=== PATIENT | female | born 1955 | race Caucasian/White ===

== ENCOUNTER → 2016-04-05 | Day surgery (SDC) | payer OTHER ==
[~2016-04-05] VITALS: Ht 165.1 cm; Wt 53.1 kg
[~2016-04-05] MED LIST: ALBUTEROL SULF0.5 M1 NEB; ALBUTEROL0.09 MG/A2 INH; ALBUTEROL2.5 MG/0.5 INH; AMBIEN10 M1 PO; AMBIEN5 MG PO; AMITIZA24 MCG PO; AMOXIL500 MG PO; ASPIRIN CHILDRE81 MG PO; ASPIRIN EC325 MG PO; ASPIRIN ENTERIC81 M1 PO; ATARAX,VISTARIL50 MG PO; ATIVAN0.5 MG PO; B121000 MCG/1; BENTYL10 MG PO; CARVEDILOL3.125 MG PO; CATAPRES0.1 MG PO; CEFEPIME1 GM IV; CEFTRIAXON1 GM/50 ML IV; CIPRO250 MG PO; CIPRO500 MG PO; CLOPIDOGREL75 MG PO; COREG3.125 MG PO; COREG6.25 MG PO; DALI500T PO; DELTASONE2.5 MG PO; DELTASONE20 MG PO; DELTASONE5 MG PO; DILAUDID4 MG PO; DILTIAZEM30 MG PO; DOXYCYCLINE MO100 MG; DULE1ARO INH; DULERA100 INH; FERREX 150150 MG PO; K-TAB20 MEQ PO; LASIX20 MG PO; LEVAQUIN 500 M500 M1 IV; LIPITOR40 MG PO; LIPITOR80 MG PO; LISINOPRIL5 MG PO; Levaquin PO; MEGACE 40400 MG/10 PO; METHYLPREDNI40 MG/M1 IV; METICORTEN1 MG PO; MICRO-K10 MEQ PO; MILLIPRED5 MG PO; MIRTAZAPINE7.5 MG PO; NEURONTIN300 MG PO; NEURONTIN400 MG PO; NOVAPLUS SOLU-M40 MG IV; NUCYNTA75 MG PO; OXYGEN NAS; PREDNISONE5 MG PO; PROTONIX40 MG PO; PYRIDIUM100 MG PO; PYRIDIUM200 MG PO; REGLAN10 MG PO; REMERON30 MG PO; REMERON45 MG PO; SLOW-K8 MEQ PO; SOLU-MEDROL IV; SOLU-MEDROL40 MG IV; SPIRIVA 5 CAPS18 MCG INH; SPIRIVA18 MCG PO; SYMBICORT1 AE1 INH; TAMIFLU 75MG CA75 MG PO; THEO PO; TOPROL XL25 MG PO; VICODIN ES 7.51 EACH PO; VITAMIN D 3; XANAX0.25 MG PO; ZESTRIL,PRINIVI10 MG PO; ZESTRIL20 MG PO; ZOFRAN8 MG PO; [UNRECOGNIZED DRUG - OTHER]; [UNRECOGNIZED DRUG - OTHER] IV
--- NOTE | ~2016-04-05 | PROC NOTE ---
[place], [place] PROCEDURE NOTE NAME: MARVIN WOLF [facility] #: [id number] UNIT #: [id number] ROOM: DOCTOR: NATE DUNN,NEENA BIRTHDATE: [birth year] DOS: PROCEDURE: Esophagogastroduodenoscopy and biopsy. INDICATION: Abdominal pain and nausea. Informed consent was obtained from the patient after indication of procedure, the alternatives and potential complications were explained to her. PROCEDURE MEDICATIONS: Sedation was administered by Anesthesiology Department. Scope used was Olympus diagnostic adult upper endoscope GIF-180, that insertion was to the descending duodenum. FINDINGS: After adequate sedation, the patient was placed in left lateral decubitus position and the scope was introduced under direct visualization through the upper esophageal sphincter into the esophagus. Esophageal mucosa appeared normal. No ulcerations or strictures. Lower esophageal sphincter was identified at 38 cm from incisors. Stomach was then intubated. Gastric mucosa inspected. Severe gastritis was seen with no discrete ulcers reflux. A CLOtest was performed from gastric antrum and body. Retroflexed views of the fundus showed no hiatal hernia. The pylorus was intubated easily. The duodenal bulb and descending duodenum were within normal range. The scope was then withdrawn after the stomach was decompressed. The patient tolerated the procedure well. IMPRESSION: 1. Severe gastritis, CLOtest performed. 2. Normal upper GI tract otherwise. PLAN: We will review the CLOtest results and treat the patient accordingly. Office followup will be scheduled in 2-3 weeks. NEENA SULLIVAN MD CM:PROCNOTE:PROCEDURE NOTE [id number] CAITLIN SULLIVAN MD
[2016-04-05 07:58] VITALS: BP 120/60
[2016-04-05 08:50] VITALS: BP 119/69
[2016-04-05 09:10] VITALS: BP 107/81
[2016-04-05 09:25] VITALS: BP 131/69
== END | disposition home or self-care (01) ==
LOC: SDC 04-03 11:00
DX: K29.70 Gastritis, unspecified, without bleeding (principal); J44.9 Chronic obstructive pulmonary disease, unspecified; I10 Essential (primary) hypertension; I25.2 Old myocardial infarction; F41.9 Anxiety disorder, unspecified; E78.00 Pure hypercholesterolemia, unspecified; Z86.74 Personal history of sudden cardiac arrest; M79.7 Fibromyalgia; I48.91 Unspecified atrial fibrillation; E27.1 Primary adrenocortical insufficiency; Z95.818 Presence of other cardiac implants and grafts; Z82.49 Family history of ischemic heart disease and other diseases of the circulatory system

== ENCOUNTER → 2016-04-08 | Outpatient (CLI) | payer OTHER | END | disposition home or self-care (01) | LOC: US 09:37 | DX: R10.9 Unspecified abdominal pain (principal) ==

== ENCOUNTER → 2016-10-02 | Outpatient (CLI) | payer OTHER | END | disposition home or self-care (01) | LOC: LAB 09:30 | PROVIDERS: Internal Medicine | DX: R51 Headache (principal) ==

== ENCOUNTER → 2016-10-04 | Outpatient (CLI) | payer OTHER | END | disposition home or self-care (01) | LOC: CT 02:10 | DX: R51 Headache (principal) ==

== ENCOUNTER → 2017-01-03 | Outpatient (CLI) | payer OTHER ==
[2017-01-03 14:29] LABS: HEMOGLOBIN 14.9 g/dl (12.0-16.0); MEAN CELL VOLUME 93.3 fl (81.0-99.0); MEAN CORPUSCULAR HGB 29.6 pg (27.0-31.0); MEAN CORPUSCULAR HGB CONC 31.7 g/dl (33.0-37.0); MEAN PLATELET VOLUME 11.9 fl (9.6-12.3); RED BLOOD COUNT 5.04 10*6/uL (4.10-5.10); RED CELL DISTRI WIDTH 13.4 % (0-14.5); WHITE BLOOD COUNT 9.7 10*3/uL (4.8-10.8)
[2017-01-03 14:47] LABS: CREATININE 1.6 mg/dL (0.55-1.02); POTASSIUM 4.3 mmol/L (3.5-5.1); TOTAL PROTEIN 6.1 gm/dL (6.4-8.2)
== END | disposition home or self-care (01) ==
LOC: LAB 13:47
PROVIDERS: Nurse Practitioner Family
DX: R10.9 Unspecified abdominal pain (principal)

== ENCOUNTER 2017-07-10 14:01 | Emergency (ER) | payer OTHER ==
[~2017-07-10] VITALS: Wt 44.0 kg
[2017-07-10 15:59] VITALS: BP 95/66
== END 2017-07-10 16:00 | disposition home or self-care (01) ==
LOC: ED 14:01
DX: S82.832A Other fracture of upper and lower end of left fibula, initial encounter for closed fracture (principal); S82.292A Other fracture of shaft of left tibia, initial encounter for closed fracture; G89.29 Other chronic pain; M79.7 Fibromyalgia; I95.1 Orthostatic hypotension; Z87.891 Personal history of nicotine dependence; Z90.49 Acquired absence of other specified parts of digestive tract; Z79.899 Other long term (current) drug therapy; Z88.1 Allergy status to other antibiotic agents; Z88.5 Allergy status to narcotic agent; Z88.8 Allergy status to other drugs, medicaments and biological substances; Z88.6 Allergy status to analgesic agent; W19.XXXA Unspecified fall, initial encounter; Y93.89 Activity, other specified; Y92.89 Other specified places as the place of occurrence of the external cause; Y99.9 Unspecified external cause status

== ENCOUNTER → 2017-07-17 | Outpatient (CLI) | payer OTHER | END | disposition home or self-care (01) | LOC: ORTHO 00:22 | DX: S82.842D Displaced bimalleolar fracture of left lower leg, subsequent encounter for closed fracture with routine healing (principal); W18.39XA Other fall on same level, initial encounter; Y93.89 Activity, other specified; Y92.89 Other specified places as the place of occurrence of the external cause; Y99.8 Other external cause status ==

== ENCOUNTER → 2017-08-04 | Outpatient (CLI) | payer OTHER | END | disposition home or self-care (01) | LOC: ORTHO 01:31 | DX: S82.842D Displaced bimalleolar fracture of left lower leg, subsequent encounter for closed fracture with routine healing (principal); X58.XXXD Exposure to other specified factors, subsequent encounter ==

== ENCOUNTER → 2017-08-27 | Outpatient (CLI) | payer OTHER | END | disposition home or self-care (01) | LOC: ORTHO 00:41 | DX: S82.842D Displaced bimalleolar fracture of left lower leg, subsequent encounter for closed fracture with routine healing (principal); X58.XXXD Exposure to other specified factors, subsequent encounter ==

== ENCOUNTER → 2017-09-10 | Outpatient (CLI) | payer OTHER | END | disposition home or self-care (01) | LOC: ORTHO 02:38 | DX: Z47.89 Encounter for other orthopedic aftercare (principal); S82.842D Displaced bimalleolar fracture of left lower leg, subsequent encounter for closed fracture with routine healing; M25.472 Effusion, left ankle; X58.XXXD Exposure to other specified factors, subsequent encounter ==

== ENCOUNTER → 2017-10-03 | Outpatient (CLI) | payer OTHER | END | disposition home or self-care (01) | LOC: ORTHO 02:14 | DX: Z47.89 Encounter for other orthopedic aftercare (principal); S82.842D Displaced bimalleolar fracture of left lower leg, subsequent encounter for closed fracture with routine healing; X58.XXXD Exposure to other specified factors, subsequent encounter ==

== ENCOUNTER 2018-07-16 14:59 | Emergency (ER) | payer OTHER ==
[~2018-07-16] VITALS: Ht 167.6 cm; Wt 58.5 kg
--- NOTE | ~2018-07-16 | EKG ---
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
[~2018-07-16 14:59] MED LIST changes: +DOXYCYCLINE100 M3 PO; +Ipratropium Brom3 ML NEB; +PULMICORT RESP0.5 MG NEB
[2018-07-16 15:37] LABS: BASO % 0.3 % (0.0-1.0); EOS # 0.1 10*3/uL (0.0-0.4); HEMATOCRIT 42.9 % (37.0-47.0); HEMOGLOBIN 14.4 g/dl (12.0-16.0); LYMPH # 0.9 10*3/uL (1.3-4.4); LYMPH % 10.2 % (27.0-41.0); MEAN CELL VOLUME 93.3 fl (81.0-99.0); MEAN CORPUSCULAR HGB 31.3 pg (27.0-31.0); MEAN CORPUSCULAR HGB CONC 33.6 g/dl (33.0-37.0); MEAN PLATELET VOLUME 10.2 fl (9.6-12.3); MONO # 0.7 10*3/uL (0.1-1.0); MONO % 7.9 % (3.0-9.0); NEUT # 7.1 10*3/uL (2.3-7.9); PLATELET COUNT AUTOMATED 194 10*3/uL (130-400); RED CELL DISTRI WIDTH 13.5 % (0-14.5); WHITE BLOOD COUNT 8.9 10*3/uL (4.8-10.8)
[2018-07-16 16:03] LABS: ALKALINE PHOSPHATASE 89 U/L (45-117); BUN 20 mg/dl (7-24); CHLORIDE 94 mmol/L (98-107); CREATININE 1.93 mg/dL (0.55-1.02); POTASSIUM 5.1 mmol/L (3.5-5.1); SGOT/AST 15 IU/L (3-35); SGPT/ALT 17 U/L (12-78); SODIUM 132 mmol/L (136-145); TOTAL PROTEIN 6.3 gm/dL (6.4-8.2)
[2018-07-16 16:11] LABS: TROPONIN I < 0.015 ng/ml (<0.045)
[2018-07-16 16:52] VITALS: BP 90/57
== END 2018-07-16 17:24 | disposition left against medical advice (07) ==
LOC: ED 14:59
PROVIDERS: Emergency Medicine
DX: I95.9 Hypotension, unspecified (principal); J44.9 Chronic obstructive pulmonary disease, unspecified; I25.10 Atherosclerotic heart disease of native coronary artery without angina pectoris; I12.9 Hypertensive chronic kidney disease with stage 1 through stage 4 chronic kidney disease, or unspecified chronic kidney disease; N18.9 Chronic kidney disease, unspecified; Z99.81 Dependence on supplemental oxygen; Z88.1 Allergy status to other antibiotic agents; Z88.8 Allergy status to other drugs, medicaments and biological substances; Z88.6 Allergy status to analgesic agent; Z88.2 Allergy status to sulfonamides; Z79.899 Other long term (current) drug therapy; Z87.891 Personal history of nicotine dependence

== ENCOUNTER 2018-09-09 21:47 | Emergency (ER) | payer OTHER ==
[~2018-09-09] VITALS: Ht 165.1 cm; Wt 55.8 kg
[2018-09-09 21:48] VITALS: BP 164/97
[2018-09-09 22:03] LABS: BASO % 0.5 % (0.0-1.0); EOS # 0.2 10*3/uL (0.0-0.4); HEMATOCRIT 39.2 % (37.0-47.0); HEMOGLOBIN 12.3 g/dl (12.0-16.0); LYMPH % 18.3 % (27.0-41.0); MEAN CELL VOLUME 97.5 fl (81.0-99.0); MEAN CORPUSCULAR HGB 30.6 pg (27.0-31.0); MEAN CORPUSCULAR HGB CONC 31.4 g/dl (33.0-37.0); MEAN PLATELET VOLUME 10.8 fl (9.6-12.3); MONO # 0.6 10*3/uL (0.1-1.0); MONO % 10.2 % (3.0-9.0); NEUT # 3.8 10*3/uL (2.3-7.9); NEUT % 66.8 % (47.0-73.0); PLATELET COUNT AUTOMATED 188 10*3/uL (130-400); RED BLOOD COUNT 4.02 10*6/uL (4.10-5.10); WHITE BLOOD COUNT 5.7 10*3/uL (4.8-10.8)
[2018-09-09 22:20] LABS: ALBUMIN 3.6 gm/dl (3.1-4.5); ALKALINE PHOSPHATASE 68 U/L (45-117); BUN 15 mg/dl (7-24); CHLORIDE 104 mmol/L (98-107); CREATININE 1.41 mg/dL (0.55-1.02); SGOT/AST 15 IU/L (3-35); SGPT/ALT 19 U/L (12-78); SODIUM 140 mmol/L (136-145); TOTAL PROTEIN 6.1 gm/dL (6.4-8.2)
== END 2018-09-09 23:57 | disposition home or self-care (01) ==
LOC: ED 21:47
PROVIDERS: Student in an Organized Health Care Education/Training Program
DX: R23.8 Other skin changes (principal); I25.10 Atherosclerotic heart disease of native coronary artery without angina pectoris; J44.9 Chronic obstructive pulmonary disease, unspecified; G89.29 Other chronic pain; I12.9 Hypertensive chronic kidney disease with stage 1 through stage 4 chronic kidney disease, or unspecified chronic kidney disease; N18.9 Chronic kidney disease, unspecified; G62.9 Polyneuropathy, unspecified; Z88.1 Allergy status to other antibiotic agents; Z79.82 Long term (current) use of aspirin; Z87.891 Personal history of nicotine dependence; Z90.49 Acquired absence of other specified parts of digestive tract; Z88.5 Allergy status to narcotic agent; Z88.6 Allergy status to analgesic agent; Z79.899 Other long term (current) drug therapy; Z88.8 Allergy status to other drugs, medicaments and biological substances; Z99.81 Dependence on supplemental oxygen

== ENCOUNTER 2018-10-25 17:50 | Emergency (ER) | payer OTHER ==
[~2018-10-25] VITALS: Ht 165.1 cm; Wt 55.3 kg
--- NOTE | ~2018-10-25 | EKG ---
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
[2018-10-25 17:53] VITALS: BP 151/85
[2018-10-25 18:12] LABS: BASO % 0.4 % (0.0-1.0); EOS # 0.2 10*3/uL (0.0-0.4); HEMATOCRIT 41.9 % (37.0-47.0); HEMOGLOBIN 13.8 g/dl (12.0-16.0); LYMPH % 17.5 % (27.0-41.0); MEAN CELL VOLUME 92.7 fl (81.0-99.0); MEAN CORPUSCULAR HGB 30.5 pg (27.0-31.0); MEAN CORPUSCULAR HGB CONC 32.9 g/dl (33.0-37.0); MEAN PLATELET VOLUME 10.8 fl (9.6-12.3); MONO # 0.5 10*3/uL (0.1-1.0); MONO % 9.5 % (3.0-9.0); NEUT # 3.9 10*3/uL (2.3-7.9); NEUT % 69.2 % (47.0-73.0); PLATELET COUNT AUTOMATED 158 10*3/uL (130-400); RED BLOOD COUNT 4.52 10*6/uL (4.10-5.10); RED CELL DISTRI WIDTH 12.4 % (0-14.5); WHITE BLOOD COUNT 5.6 10*3/uL (4.8-10.8)
[2018-10-25 18:29] LABS: ALBUMIN 3.7 gm/dl (3.1-4.5); ALKALINE PHOSPHATASE 67 U/L (45-117); BUN 16 mg/dl (7-24); CHLORIDE 93 mmol/L (98-107); CREATININE 1.51 mg/dL (0.55-1.02); POTASSIUM 3.9 mmol/L (3.5-5.1); SGOT/AST 8 IU/L (3-35); SGPT/ALT 10 U/L (12-78); SODIUM 131 mmol/L (136-145); TOTAL PROTEIN 6.2 gm/dL (6.4-8.2)
[2018-10-25 18:32] LABS: TROPONIN I < 0.015 ng/ml (<0.045)
== END 2018-10-25 19:45 | disposition home or self-care (01) ==
LOC: ED 17:50
PROVIDERS: Physician Assistant
DX: S00.03XA Contusion of scalp, initial encounter (principal); R42 Dizziness and giddiness; J44.9 Chronic obstructive pulmonary disease, unspecified; Z79.899 Other long term (current) drug therapy; Z88.1 Allergy status to other antibiotic agents; Z88.2 Allergy status to sulfonamides; Z88.6 Allergy status to analgesic agent; Z88.8 Allergy status to other drugs, medicaments and biological substances; Z87.891 Personal history of nicotine dependence; Z99.81 Dependence on supplemental oxygen; W18.39XA Other fall on same level, initial encounter; Y93.89 Activity, other specified; Y92.89 Other specified places as the place of occurrence of the external cause; Y99.8 Other external cause status

== ENCOUNTER → 2019-11-16 | Outpatient (CLI) | payer OTHER | END | disposition home or self-care (01) | LOC: CARD 12:00 → LAB 12:06 | PROVIDERS: ATTEND Internal Medicine | DX: J43.1 Panlobular emphysema (principal); I10 Essential (primary) hypertension; R51 Headache; J20.9 Acute bronchitis, unspecified; R05 Cough; R07.0 Pain in throat; D52.9 Folate deficiency anemia, unspecified; D51.9 Vitamin B12 deficiency anemia, unspecified; R79.82 Elevated C-reactive protein (CRP); R53.81 Other malaise; E55.9 Vitamin D deficiency, unspecified; M06.9 Rheumatoid arthritis, unspecified; R06.02 Shortness of breath ==

== ENCOUNTER 2020-01-03 16:30 | Inpatient (IN) | payer OTHER ==
[~2020-01-03] VITALS: Ht 167.6 cm; Wt 61.8 kg
[2020-01-03 16:50] VITALS: BP 173/84
--- NOTE | 2020-01-03 16:56 | NUR ---
PT PLACED ON O2 AT 4LPM WHILE AWAITING A ROOM PULSE OC NOW 97% WAS 84% ON ROOM AIR
[2020-01-03 18:22] LABS: BASO % 0.7 % (0.0-1.0); EOS # 0.2 10*3/uL (0.0-0.4); EOS % 3.8 % (1.0-4.0); LYMPH # 1.1 10*3/uL (1.3-4.4); LYMPH % 18.7 % (27.0-41.0); MEAN CELL VOLUME 97.7 fl (81.0-99.0); MEAN CORPUSCULAR HGB 28.8 pg (27.0-31.0); MEAN CORPUSCULAR HGB CONC 29.5 g/dl (33.0-37.0); MEAN PLATELET VOLUME 11.9 fl (9.6-12.3); MONO % 16.4 % (3.0-9.0); NEUT # 3.5 10*3/uL (2.3-7.9); NEUT % 60.2 % (47.0-73.0); PLATELET COUNT AUTOMATED 156 10*3/uL (130-400); RED BLOOD COUNT 3.99 10*6/uL (4.10-5.10); RED CELL DISTRI WIDTH 14.6 % (0-14.5); WHITE BLOOD COUNT 5.8 10*3/uL (4.8-10.8)
[2020-01-03 18:34] LABS: ACT PARTIAL THROMBO TIME 26.1 SECONDS (20.0-32.1)
[2020-01-03 18:40] LABS: ALBUMIN 3.3 gm/dl (3.1-4.5); ALKALINE PHOSPHATASE 65 U/L (45-117); BUN 17 mg/dl (7-24); CHLORIDE 99 mmol/L (98-107); CREATININE 1.18 mg/dL (0.55-1.02); LIPASE 139 U/L (73-393); POTASSIUM 4.1 mmol/L (3.5-5.1); SGOT/AST 17 IU/L (3-35); SGPT/ALT 12 U/L (12-78); SODIUM 139 mmol/L (136-145); TOTAL PROTEIN 6.5 gm/dL (6.4-8.2)
[2020-01-03 18:46] LABS: TROPONIN I < 0.015 ng/ml (<0.045)
[2020-01-03 19:17] LABS: ABG BASE EXCESS 9.3 mmol/L (-2.0-2.0); ARTERIAL BLOOD GAS PH 7.325 (7.35-7.45)
--- NOTE | 2020-01-03 20:33 | NUR ---
PATIENT RESTING IN BED WATCHING TV. DENIES THE NEED FOR ANYTHING AT THIS TIME. CALL LIGHT WITHIN REACH
[2020-01-03 20:51] VITALS: BP 140/75
[2020-01-03 22:00] VITALS: BP 150/82
--- NOTE | 2020-01-03 22:00 | NUR ---
A 64, admitted to , under the services of Dr. ELAINA DUNN,MARIELLE Mcmillan with a diagnosis of COPD WITH ACUTE EXACERBATION. Chief complaint is SOB. Patient arrived via wheel chair from ER. Monitor applied. Initial assessment completed. Vital signs taken and recorded. DR. ELAINA DUNN,MARIELLE Mcmillan notified of admission to the unit. Orders received. See assessment for past medical history, medications and allergies. Patient and/or family oriented to unit. [address] visitation policy reviewed. Clothing/patient valuable form completed. MISHEL WISE
[2020-01-03] MEDS ORDERED: TOPIRAMATE25 M1 PO (22:12)
[2020-01-03] MEDS ORDERED: AMITRIPTYLINE100 M1 PO (22:13)
[2020-01-03] MEDS ORDERED: MIRTAZAPINE15 M2 PO (22:13)
[2020-01-03] MEDS ORDERED: DEPAKOTE ER500 MG PO (22:14)
[2020-01-04 08:00] VITALS: BP 156/92
--- NOTE | 2020-01-04 09:00 | NUR ---
[place] in to talk to patient. Patient states lives at home with her . There are 0 steps in the home. Physician: Dr. Shahida Domingo Pharmacy: [facility] health services: has had Dante RN previously, currently has OV Patient's level of ADLs: INDEPENDENT Patient has working utilities: yes DME: O2 @ 3.5L nc, nebulizer, pulse ox, O2 supplier [employer] Follow-up physician's appointment after d/c: she prefers to make her own follow up appt after discharge Does patient want to access PORTAL?: no Discharge plan discussed with patient. She lives at home with her . She is independent in her ADLs and ambulation. Discussed home health care services and she declines. 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 Their daughter is staying with him today and she is hoping to be discharged tomorrow. CM will continue to follow for any discharge planning needs. When medically stable she will be discharged to home. She states her daughter will provide transportation on discharge. NAKIA JENSEN
[2020-01-04 16:00] VITALS: BP 125/58
[2020-01-04 20:00] VITALS: BP 119/67
--- NOTE | 2020-01-04 20:00 | NUR ---
PATIENT COMPLAINING OF ANXIETY. SHE STATES SHE SHOULD'VE BEEN HOME ALREADY TONIGHT, BECAUSE DR. CASPER SAID SHE WOULD JUST STAY OVER NIGHT BUT DR. DELANEY IS KEEPING HER ANOTHER NIGHT. SO SHE FEELS REALLY ANXIOUS NOT BEING HOME WITH HER SICK . REASSURED PATIENT THAT DR. DELANEY WILL REEVALUATE TOMORROW WHEN HE COMES IN AND HOPEFULLY SHE IS STILL DOING WELL SHE IS AND SHE WILL GET TO GO HOME
--- NOTE | 2020-01-04 21:00 | NUR ---
RAFFY WALL GIVEN FOR PT COMPLAINTS OF SLEEPLESSNESS. CALL LIGHT WITHIN REACH, WILL MONITOR
--- NOTE | 2020-01-04 22:00 | NUR ---
PRN MEDICATION NOT KICKED IN YET PER PT.
[2020-01-05] VITALS: BP 149/78
--- NOTE | 2020-01-05 02:37 | NUR ---
24 HR chart check completed.
--- NOTE | 2020-01-05 02:38 | NUR ---
PT SLEEPING, NO DISTRESS NOTED. BREATHING IS EASY AND REGULAR ON 3L NC. CALL LIGHT WITHIN REACH, WILL MONITOR
--- NOTE | 2020-01-05 07:30 | NUR ---
PT RESTING IN BED.RESPS EASY AND NON LABORED. NO S/S OF DISTRESS NOTED. VSS. WHITE BOARD UPDATED. POC DISCUSSED W PT. A/O X3. 3L NC INTACT. PT STATES SHE FEELS 100% BETTER SINCE ADMISSION AND THAT DR CASPER SAID SHE COULD GO HOME TODAY. 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 R CHEST MEDIPORT PATENT-DRG C/D/I WILL CONITNUE TO MONITOR. CALL LIGHT WITHIN REACH.
[2020-01-05 08:00] VITALS: BP 150/81
--- NOTE | 2020-01-05 09:00 | NUR ---
CM in to see patient. She is requesting to be discharged. She states she saw Dr. Shahida Domingo this morning and she said she could go home but that she would have to wait for Dr. Shelton to come in. She states Dr. Shelton came in but didn't tell her if she would be discharged today or not. She needs to go home and take care of her who has dementia. Discussed discharge planning with Dr. Shelton. He states patient needs to have her pulse ox checked by respiratory and as long it is ok she can be discharged to home. Relayed above information to patient and she is understandable. Discussed home health care services and she declines. CM will continue to follow for any discharge planning needs.
[2020-01-05] MEDS ORDERED: MEDROL DOSEPAK4 MG PO (09:40)
[2020-01-05] MEDS ORDERED: AUGMENTIN 875-875 MG PO (09:43)
--- NOTE | 2020-01-05 10:39 | NUR ---
Discharge instructions reviewed with patient/family. Patient receptive and verbalizes understanding. Follow-up care arranged. Written instructions given to patient/family. BIBI STANLEY The Discharge Plan/Instructions have been completed. Hep Lock discontinued. Site asymptomatic. Pressure applied. Sterile dressing applied. BIBI STANLEY
== END 2020-01-05 10:47 | disposition home or self-care (01) | DRG 189 ==
LOC: ED 16:30 → EDHOLD 21:01 → 4E 21:58
PROVIDERS: Nurse Practitioner Family; ADMIT Internal Medicine; ATTEND Internal Medicine
DX: J96.21 Acute and chronic respiratory failure with hypoxia (principal); J44.1 Chronic obstructive pulmonary disease with (acute) exacerbation; F33.9 Major depressive disorder, recurrent, unspecified; N18.2 Chronic kidney disease, stage 2 (mild); I25.10 Atherosclerotic heart disease of native coronary artery without angina pectoris; I12.9 Hypertensive chronic kidney disease with stage 1 through stage 4 chronic kidney disease, or unspecified chronic kidney disease; G62.9 Polyneuropathy, unspecified; R26.2 Difficulty in walking, not elsewhere classified; F51.04 Psychophysiologic insomnia; Z88.1 Allergy status to other antibiotic agents; Z95.5 Presence of coronary angioplasty implant and graft; Z88.5 Allergy status to narcotic agent; Z88.2 Allergy status to sulfonamides; Z88.8 Allergy status to other drugs, medicaments and biological substances; Z79.899 Other long term (current) drug therapy; Z90.49 Acquired absence of other specified parts of digestive tract

== ENCOUNTER → 2020-03-15 | Outpatient (CLI) | payer OTHER ==
[~2020-03-15] MED LIST changes: +AMITRIPTYLINE100 M1 PO; +AUGMENTIN 875-875 MG PO; +DEPAKOTE ER500 MG PO; +MEDROL DOSEPAK4 MG PO; +MIRTAZAPINE15 M2 PO; +TOPIRAMATE25 M1 PO
== END | disposition home or self-care (01) ==
LOC: COVID19 14:41
PROVIDERS: ATTEND Internal Medicine
DX: Z20.828 Contact with and (suspected) exposure to other viral communicable diseases (principal)

== ENCOUNTER → 2021-03-12 | Outpatient (CLI) | payer MEDICARE, OTHER | END | disposition home or self-care (01) | LOC: MAMMO 13:25 | PROVIDERS: ATTEND Internal Medicine | DX: Z12.31 Encounter for screening mammogram for malignant neoplasm of breast (principal) ==

== ENCOUNTER 2021-03-19 10:51 | Emergency (ER) | payer MEDICARE, OTHER ==
[~2021-03-19] VITALS: Ht 165.1 cm; Wt 58.5 kg
[2021-03-19 11:05] VITALS: BP 128/83
== END 2021-03-19 15:21 | disposition left against medical advice (07) ==
LOC: ED 10:51
DX: Z53.21 Procedure and treatment not carried out due to patient leaving prior to being seen by health care provider (principal)

== ENCOUNTER → 2021-08-09 | Outpatient (CLI) | payer MEDICARE, OTHER ==
[2021-08-09 15:18] LABS: BASO % 0.4 % (0.0-1.0); EOS # 0.2 10*3/uL (0.0-0.4); EOS % 2.6 % (1.0-4.0); HEMATOCRIT 35.7 % (37.0-47.0); LYMPH # 1.3 10*3/uL (1.3-4.4); LYMPH % 13.9 % (27.0-41.0); MEAN CELL VOLUME 97.5 fl (81.0-99.0); MEAN CORPUSCULAR HGB 30.3 pg (27.0-31.0); MEAN CORPUSCULAR HGB CONC 31.1 g/dl (33.0-37.0); MEAN PLATELET VOLUME 9.6 fl (9.6-12.3); MONO # 0.7 10*3/uL (0.1-1.0); MONO % 7.7 % (3.0-9.0); NEUT # 6.9 10*3/uL (2.3-7.9); NEUT % 74.7 % (47.0-73.0); PLATELET COUNT AUTOMATED 190 10*3/uL (130-400); RED BLOOD COUNT 3.66 10*6/uL (4.10-5.10); RED CELL DISTRI WIDTH 12.6 % (0-14.5); WHITE BLOOD COUNT 9.2 10*3/uL (4.8-10.8)
[2021-08-09 15:37] LABS: CREATININE 1.12 mg/dL (0.55-1.02); FREE T4 0.89 ng/dl (0.76-1.46); POTASSIUM 3.1 mmol/L (3.5-5.1); TOTAL PROTEIN 5.8 gm/dL (6.4-8.2)
[2021-08-09 15:42] LABS: THYROID STIM HORMONE (HS) 1.24 uIU/ml (0.358-4.75)
[2021-08-09 16:35] LABS: VITAMIN D, 25-HYDROXY 45.8 ng/mL (30-100)
== END | disposition home or self-care (01) ==
LOC: LAB 14:55
PROVIDERS: ATTEND Internal Medicine
DX: I10 Essential (primary) hypertension (principal); Z23 Encounter for immunization; Z13.89 Encounter for screening for other disorder; Z13.29 Encounter for screening for other suspected endocrine disorder; E55.9 Vitamin D deficiency, unspecified; Z13.1 Encounter for screening for diabetes mellitus; Z13.0 Encounter for screening for diseases of the blood and blood-forming organs and certain disorders involving the immune mechanism; Z13.21 Encounter for screening for nutritional disorder; Z13.228 Encounter for screening for other metabolic disorders; Z13.6 Encounter for screening for cardiovascular disorders; Z13.9 Encounter for screening, unspecified

== ENCOUNTER 2021-09-16 08:48 | Inpatient (IN) | payer MEDICARE, OTHER ==
[~2021-09-16] VITALS: Ht 167.6 cm; Wt 60.5 kg
[2021-09-16 08:57] VITALS: BP 105/54
[2021-09-16 09:36] VITALS: BP 113/67
[2021-09-16 09:36] LABS: BASO % 0.7 % (0.0-1.0); EOS # 0.3 10*3/uL (0.0-0.4); EOS % 5.4 % (1.0-4.0); HEMATOCRIT 35.6 % (37.0-47.0); LYMPH # 0.7 10*3/uL (1.3-4.4); LYMPH % 11.2 % (27.0-41.0); MEAN CORPUSCULAR HGB 30.9 pg (27.0-31.0); MEAN CORPUSCULAR HGB CONC 30.9 g/dl (33.0-37.0); MEAN PLATELET VOLUME 10.6 fl (9.6-12.3); MONO # 0.5 10*3/uL (0.1-1.0); MONO % 8.1 % (3.0-9.0); NEUT # 4.3 10*3/uL (2.3-7.9); NEUT % 74.3 % (47.0-73.0); PLATELET COUNT AUTOMATED 170 10*3/uL (130-400); RED BLOOD COUNT 3.56 10*6/uL (4.10-5.10); RED CELL DISTRI WIDTH 12.1 % (0-14.5); WHITE BLOOD COUNT 5.8 10*3/uL (4.8-10.8)
[2021-09-16 09:52] LABS: CREATININE 1.26 mg/dL (0.55-1.02); POTASSIUM 3.4 mmol/L (3.5-5.1); TOTAL PROTEIN 5.4 gm/dL (6.4-8.2)
[2021-09-16 14:00] VITALS: BP 127/64
[2021-09-16 14:27] VITALS: BP 157/86
[2021-09-16] MEDS ORDERED: POTASSIUM CHLO20 ME4 PO (15:19)
[2021-09-16] MEDS ORDERED: MIRTAZAPINE30 M2 PO (15:20)
[2021-09-16] MEDS ORDERED: CYMBALTA60 MG PO (15:20)
[2021-09-16] MEDS ORDERED: PREDNISONE5 MG PO (15:22)
[2021-09-16 16:00] VITALS: BP 132/86
[2021-09-16 20:00] VITALS: BP 124/81
[2021-09-17] VITALS: BP 137/66
[2021-09-17 08:00] VITALS: BP 135/71
[2021-09-17 12:00] VITALS: BP 128/76
[2021-09-17 16:00] VITALS: BP 135/69
[2021-09-17] MEDS ORDERED: MEDROL DOSEPAK4 MG PO (18:19)
[2021-09-17 20:00] VITALS: BP 118/67
== END 2021-09-17 19:37 | disposition home or self-care (01) | DRG 189 ==
LOC: ED 08:48 → 5E 12:36 → EDHOLD 12:36 → 5E 13:31
PROVIDERS: Emergency Medicine; ADMIT Internal Medicine; ATTEND Internal Medicine
DX: J96.21 Acute and chronic respiratory failure with hypoxia (principal); J44.1 Chronic obstructive pulmonary disease with (acute) exacerbation; I48.21 Permanent atrial fibrillation; F33.1 Major depressive disorder, recurrent, moderate; N18.2 Chronic kidney disease, stage 2 (mild); I25.10 Atherosclerotic heart disease of native coronary artery without angina pectoris; G47.33 Obstructive sleep apnea (adult) (pediatric); G62.9 Polyneuropathy, unspecified; F51.04 Psychophysiologic insomnia; T78.3XXA Angioneurotic edema, initial encounter; F41.1 Generalized anxiety disorder; I12.9 Hypertensive chronic kidney disease with stage 1 through stage 4 chronic kidney disease, or unspecified chronic kidney disease; Z90.49 Acquired absence of other specified parts of digestive tract; Z95.5 Presence of coronary angioplasty implant and graft; Z88.8 Allergy status to other drugs, medicaments and biological substances; Z88.6 Allergy status to analgesic agent; Z88.2 Allergy status to sulfonamides; Z82.49 Family history of ischemic heart disease and other diseases of the circulatory system; Z83.6 Family history of other diseases of the respiratory system; T46.4X5A Adverse effect of angiotensin-converting-enzyme inhibitors, initial encounter; Y92.89 Other specified places as the place of occurrence of the external cause

== ENCOUNTER 2021-10-21 14:49 | Emergency (ER) | payer MEDICARE, OTHER ==
[~2021-10-21] VITALS: Wt 61.2 kg
[~2021-10-21 14:49] MED LIST changes: +CYMBALTA60 MG PO; +MIRTAZAPINE30 M2 PO; +POTASSIUM CHLO20 ME4 PO
[2021-10-21 15:07] VITALS: BP 165/91
[2021-10-21] MEDS ORDERED: NYST SUSP PO (15:29)
== END 2021-10-21 15:41 | disposition home or self-care (01) ==
LOC: ED 14:49
DX: B37.0 Candidal stomatitis (principal); Z87.891 Personal history of nicotine dependence; Z79.899 Other long term (current) drug therapy; Z88.1 Allergy status to other antibiotic agents; Z88.5 Allergy status to narcotic agent

== ENCOUNTER → 2021-11-13 | Outpatient (CLI) | payer MEDICARE, OTHER ==
[~2021-11-13] MED LIST changes: +NYST SUSP PO
== END | disposition home or self-care (01) ==
LOC: RAD 12:27
PROVIDERS: ATTEND Internal Medicine
DX: M19.012 Primary osteoarthritis, left shoulder (principal)

== ENCOUNTER 2024-02-19 10:51 | Emergency (ER) | payer MEDICARE, OTHER ==
[~2024-02-19] VITALS: Ht 162.5 cm; Wt 56.7 kg
[~2024-02-19 10:51] MED LIST changes: +ACETAZOLAMIDE250 MG PO; +ASPIRIN ADULT L81 M2 PO; +ATORVASTATIN CA40 M1 PO; +CLONAZEPAM0.5 M2 PO; +CYMBALTA30 MG PO; +DOXYCYCLINE MO100 MG PO; +Depakote500 MG PO; +HYDROXYZINE HCL25 MG PO; +METOPROLOL SUCC25 M2 PO; +XARE20MG PO
[2024-02-19] MEDS ORDERED: Prochlorperazine Edisylate 10 MG/2 ML VIAL IV ONE (10:55)
[2024-02-19] MEDS ORDERED: diphenhydrAMINE hydrochloride 50 MG/ML VIAL IV ONE (10:55)
[2024-02-19] MEDS ORDERED: FAMOTIDINE 50 ML IV ONE (10:55)
[2024-02-19] MEDS ORDERED: SODIUM CHLORIDE 0.9% 1,000 ML IV ONE (10:55)
[2024-02-19] MEDS ORDERED: Ketorolac Tromethamine 15 MG/ML VIAL IV ONE (11:00)
[2024-02-19 11:22] LABS: HEMATOCRIT 39.4 % (37.0-47.0); MEAN CELL VOLUME 96.1 fl (81.0-99.0); MEAN CORPUSCULAR HGB 29.8 pg (27.0-31.0); PLATELET COUNT AUTOMATED 205 10*3/uL (130-400); RED CELL DISTRI WIDTH 12.5 % (0-14.5); WHITE BLOOD COUNT 10.3 10*3/uL (4.8-10.8)
[2024-02-19 11:24] LABS: MANUAL DIFF REFLEX YES
[2024-02-19 11:48] LABS: POTASSIUM 4.4 mmol/L (3.4-5.1)
[2024-02-19 11:49] LABS: PLATELET SUFFICIENCY NORMAL (NORMAL); TOTAL CELLS COUNTED 100 #CELLS
[2024-02-19 12:23] VITALS: BP 125/42
[2024-02-19] MEDS ORDERED: TRELEGY ELLIPT1 EAC1 INH (12:33)
[2024-02-19] MEDS ORDERED: COMPAZINE10 M1 PO (12:34)
== END 2024-02-19 12:43 | disposition home or self-care (01) ==
LOC: ED 10:51
PROVIDERS: Emergency Medicine
DX: R07.89 Other chest pain (principal); R11.2 Nausea with vomiting, unspecified; R19.7 Diarrhea, unspecified; I10 Essential (primary) hypertension; J44.9 Chronic obstructive pulmonary disease, unspecified; E78.5 Hyperlipidemia, unspecified; I25.2 Old myocardial infarction; F41.9 Anxiety disorder, unspecified; E78.00 Pure hypercholesterolemia, unspecified; M79.7 Fibromyalgia; I48.91 Unspecified atrial fibrillation; Z88.8 Allergy status to other drugs, medicaments and biological substances; Z88.5 Allergy status to narcotic agent; Z88.2 Allergy status to sulfonamides; Z90.49 Acquired absence of other specified parts of digestive tract; Z95.5 Presence of coronary angioplasty implant and graft

== ENCOUNTER → 2024-05-19 | Outpatient (CLI) | payer MEDICARE, OTHER ==
[~2024-05-19] MED LIST changes: +CEFTRIAXONE1 GM IJ; +COMPAZINE10 M1 PO; +FUROSEMIDE20 M1 PO; +SOLU-MEDRO40 MG/1 ML IM; +TEZEPELUMAB-EKKO 210 MG/1.91 ML SYRINGE SQ ONE; +TRELEGY ELLIPT1 EAC1 INH
[2024-05-19 11:16] VITALS: BP 104/56
== END | disposition home or self-care (01) ==
LOC: INJECTION 10:00
PROVIDERS: ATTEND Internal Medicine Critical Care Medicine
DX: J45.50 Severe persistent asthma, uncomplicated (principal); I10 Essential (primary) hypertension; J44.9 Chronic obstructive pulmonary disease, unspecified; F41.9 Anxiety disorder, unspecified; I25.2 Old myocardial infarction; E78.00 Pure hypercholesterolemia, unspecified; I48.91 Unspecified atrial fibrillation; D14.32 Benign neoplasm of left bronchus and lung; J96.11 Chronic respiratory failure with hypoxia; J96.12 Chronic respiratory failure with hypercapnia; Z99.81 Dependence on supplemental oxygen; Z87.891 Personal history of nicotine dependence

== ENCOUNTER → 2024-06-18 | Outpatient (CLI) | payer MEDICARE, OTHER ==
[2024-06-18 11:50] VITALS: BP 117/63
== END | disposition home or self-care (01) ==
LOC: INJECTION 02:05
PROVIDERS: ATTEND Internal Medicine Critical Care Medicine
DX: J45.50 Severe persistent asthma, uncomplicated (principal); J44.9 Chronic obstructive pulmonary disease, unspecified; D14.32 Benign neoplasm of left bronchus and lung; J96.12 Chronic respiratory failure with hypercapnia; I10 Essential (primary) hypertension; E78.00 Pure hypercholesterolemia, unspecified; Z99.81 Dependence on supplemental oxygen; Z87.891 Personal history of nicotine dependence; Z90.49 Acquired absence of other specified parts of digestive tract; Z98.51 Tubal ligation status

== ENCOUNTER → 2024-07-16 | Outpatient (CLI) | payer MEDICARE, OTHER | END | disposition home or self-care (01) | LOC: INJECTION 08:00 | PROVIDERS: ATTEND Internal Medicine Critical Care Medicine | DX: J45.50 Severe persistent asthma, uncomplicated (principal); J44.9 Chronic obstructive pulmonary disease, unspecified; J96.11 Chronic respiratory failure with hypoxia; J96.12 Chronic respiratory failure with hypercapnia; D14.32 Benign neoplasm of left bronchus and lung; Z99.81 Dependence on supplemental oxygen; Z87.891 Personal history of nicotine dependence ==

== ENCOUNTER → 2024-09-10 | Outpatient (CLI) | payer MEDICARE, OTHER ==
[~2024-09-10] MED LIST changes: +TEZSPIRE210 MG/1.1 SQ
[2024-09-10 13:37] VITALS: BP 98/50
== END | disposition home or self-care (01) ==
LOC: INJECTION 01:23
PROVIDERS: ATTEND Internal Medicine Critical Care Medicine
DX: J45.50 Severe persistent asthma, uncomplicated (principal); J44.9 Chronic obstructive pulmonary disease, unspecified; J96.11 Chronic respiratory failure with hypoxia; J96.12 Chronic respiratory failure with hypercapnia; E78.00 Pure hypercholesterolemia, unspecified; I10 Essential (primary) hypertension; I25.2 Old myocardial infarction; F41.9 Anxiety disorder, unspecified; I48.91 Unspecified atrial fibrillation; Z99.81 Dependence on supplemental oxygen; Z87.891 Personal history of nicotine dependence; Z98.51 Tubal ligation status

== ENCOUNTER → 2024-10-08 | Outpatient (CLI) | payer MEDICARE, OTHER | END | disposition home or self-care (01) | LOC: INJECTION 01:48 | PROVIDERS: ATTEND Internal Medicine Critical Care Medicine | DX: J45.50 Severe persistent asthma, uncomplicated (principal); J44.9 Chronic obstructive pulmonary disease, unspecified; J96.11 Chronic respiratory failure with hypoxia; J96.12 Chronic respiratory failure with hypercapnia; D14.32 Benign neoplasm of left bronchus and lung; Z87.891 Personal history of nicotine dependence ==

== ENCOUNTER → 2024-11-11 | Outpatient (CLI) | payer MEDICARE, OTHER ==
[2024-10-08 11:35] VITALS: BP 136/71
[~2024-11-11] MED LIST changes: +AMLODIPINE BES2.5 MG PO; +BUPROPION HYDR150 M3 PO; +Econopred Plus 15 ML OPH; +TOPIRAMATE25 M3 PO
[2024-11-11 13:29] VITALS: BP 141/63
== END | disposition home or self-care (01) ==
LOC: INJECTION 11-05 12:00
PROVIDERS: ATTEND Internal Medicine Critical Care Medicine
DX: J45.50 Severe persistent asthma, uncomplicated (principal); J44.9 Chronic obstructive pulmonary disease, unspecified; I10 Essential (primary) hypertension; I25.2 Old myocardial infarction; F41.9 Anxiety disorder, unspecified; I48.91 Unspecified atrial fibrillation; D14.32 Benign neoplasm of left bronchus and lung; F17.210 Nicotine dependence, cigarettes, uncomplicated; Z99.81 Dependence on supplemental oxygen

== ENCOUNTER → 2024-12-14 | Outpatient (CLI) | payer MEDICARE, OTHER | END | disposition home or self-care (01) | LOC: LAB 11:47 → INJECTION 13:00 | PROVIDERS: ATTEND Internal Medicine Critical Care Medicine | DX: J45.50 Severe persistent asthma, uncomplicated (principal); J44.9 Chronic obstructive pulmonary disease, unspecified; J96.11 Chronic respiratory failure with hypoxia; G50.0 Trigeminal neuralgia; J96.12 Chronic respiratory failure with hypercapnia; D14.32 Benign neoplasm of left bronchus and lung; Z99.81 Dependence on supplemental oxygen; Z87.891 Personal history of nicotine dependence ==

== ENCOUNTER → 2025-01-19 | Outpatient (CLI) | payer MEDICARE, OTHER ==
[2025-01-19 12:04] VITALS: BP 127/67
== END | disposition home or self-care (01) ==
LOC: INJECTION 01-14 13:00
PROVIDERS: ATTEND Internal Medicine Critical Care Medicine
DX: J45.50 Severe persistent asthma, uncomplicated (principal); J44.9 Chronic obstructive pulmonary disease, unspecified; F41.9 Anxiety disorder, unspecified; I25.2 Old myocardial infarction; I10 Essential (primary) hypertension; I48.91 Unspecified atrial fibrillation; Z87.891 Personal history of nicotine dependence